=== PATIENT | female | born 1990 | race American Indian/Alaskan Native ===

== ENCOUNTER 2017-04-03 02:10 | Emergency (ER) | payer OTHER ==
[2017-04-03 04:15] VITALS: BP 108/68
[2017-04-03] MEDS ORDERED: MOTRIN PO ONE (04:15)
--- NOTE | 2017-04-03 04:54 | XRay Report ---
FINAL REPORT EXAM: XR SPINE LUMBOSACRAL 2-3V HISTORY: lower back pain TECHNIQUE: Three views lumbar spine, 5 total images PRIORS: None. FINDINGS: Lumbar lordosis is intact. Vertebral body heights and intervertebral disc spaces are preserved. No listhesis, spondylolysis or other fracture. IMPRESSION: Unremarkable lumbar spine radiographs. Consider follow-up MRI as warranted.
== END 2017-04-03 07:45 | disposition left against medical advice (07) ==
LOC: ED 02:10
DX: M54.5 Low back pain (principal); Z53.21 Procedure and treatment not carried out due to patient leaving prior to being seen by health care provider
CPT/HCPCS: 72100

== ENCOUNTER 2017-11-01 06:04 | Emergency (ER) | payer OTHER ==
[2017-11-01 06:45] VITALS: BP 101/63
[2017-11-01 07:51] LABS: Bilirubin,Urine NEG (Negative); Blood,Urine NEG (Negative); Color,Urine Yellow (Yellow); Mucus,Urine FEW /HPF; Protein,Urine <15 mg/dL mg/dL (Negative); Urobilinogen,Urine < 2.0 mg/dL (<2.0)
[2017-11-01 08:04] LABS: HCG Qualitative,Urine Negative (Negative)
--- NOTE | 2017-11-01 09:17 | XRay Report ---
FINAL REPORT EXAM: XR WRIST 3+V RT HISTORY: trauma COMPARISON: None. TECHNIQUE: Four views of the right wrist FINDINGS: There is normal alignment without acute fracture or dislocation. The joint spaces are preserved. The overlying soft tissues are intact. IMPRESSION: No acute bony abnormality of the right wrist.
--- NOTE | 2017-11-01 10:55 | Emergency Department Report ---
ED Upper Extremity Inj HPI - General Chief Complaint: Extremity Injury, Upper Stated Complaint: RT HAND PAIN Time Seen by Provider: 11/01/17 10:38 Source: patient Mode of arrival: Ambulatory Limitations: No Limitations - History of Present Illness Initial Comments: This is a 27-year-old -[place] female who presents with right wrist pain while in work yesterday. His right wrist pain shortly after pulling a pallet yesterday while at work. Patient states she was moving a palate with a pallet kirby and he got caught on something and injured her wrist back. Fine yesterday while at work continued on and when she woke up this morning and her right wrist was and she was unable to move it. Patient's denies swelling or erythema to area. States pain is on the lateral side of right wrist and worse with movement. Patient states pain is 8 out of 10 with movement on pain scale. Patient has not taken anything [id number], she is applied ice to area for swelling. Denies swelling, erythema, fever. MD Complaint: Injury to:: right, wrist Onset/Timin -: days(s) Other Extremity Injury: Wrist: Right Other Injuries: none Handedness: right Place: work Severity scale (0 -10): 8 Improves With: immobilization Worsens With: movement of extremity Context: other (hyperextended ) Associated Symptoms: numbness. denies: weakness, neck pain, suspects foreign body, nausea/vomiting, heard/felt popping sensat - Related Data Previous Rx's Medication Instructions Recorded Last Taken Type Cyclobenzaprine HCl [Flexeril 5 MG 5 mg PO TID PRN #12 tab 11/01/17 Unknown Rx TAB] Ibuprofen [Motrin 800 MG tab] 800 mg PO Q8HR PRN #15 tablet 11/01/17 Unknown Rx Allergies Allergy/AdvReac Type Severity Reaction Status Date / Time No Known Allergies Allergy Verified 11/01/17 06:41 ED Review of Systems ROS: Stated complaint: RT HAND PAIN Other details as noted in HPI Constitutional: denies: chills, fever Respiratory: denies: cough, shortness of breath, wheezing Cardiovascular: denies: chest pain, palpitations Gastrointestinal: denies: abdominal pain, nausea, diarrhea Musculoskeletal: arthralgia (right wrist pain). denies: back pain, joint swelling Skin: denies: rash, lesions Neurological: numbness. denies: headache, weakness, paresthesias Psychiatric: denies: anxiety, depression ED Past Medical Hx - Past Medical History Hx Asthma: Yes (seasonal allergies) - Surgical History Past Surgical History?: Yes Additional Surgical History: Left ACL surgery - Social History Smoking Status: Former Smoker Substance Use Type: None - Medications Home Medications: Home Medications Medication Instructions Recorded Confirmed Last Taken Type Cyclobenzaprine HCl [Flexeril 5 MG 5 mg PO TID PRN #12 tab 11/01/17 Unknown Rx TAB] Ibuprofen [Motrin 800 MG tab] 800 mg PO Q8HR PRN #15 tablet 11/01/17 Unknown Rx ED Physical Exam - General Limitations: No Limitations General appearance: alert, in no apparent distress - Neck Neck exam: Present: normal inspection - Respiratory Respiratory exam: Present: normal lung sounds bilaterally. Absent: respiratory distress - Cardiovascular Cardiovascular Exam: Present: regular rate, normal rhythm. Absent: systolic murmur, diastolic murmur, rubs, gallop - GI/Abdominal GI/Abdominal exam: Present: soft, normal bowel sounds. Absent: organomegaly, mass - Extremities Exam Extremities exam: Present: normal inspection, normal capillary refill. Absent: pedal edema, joint swelling, calf tenderness - Expanded Upper Extremity Exam Right Shoulder Exam: Present: normal inspection, full ROM Upper Arm exam: Present: normal inspection, full ROM Elbow exam: Present: normal inspection, full ROM Forearm Wrist exam: Present: tenderness (tenderness and ulnar extensor area, no swelling or erythema, limited range of motion secondary to pain). Absent: swelling, abrasion, laceration, ecchymosis, deformity, crepidus, dislocation, erythema, tenderness over anatomical snuff box, pain with axial thumb loading Hand Wrist exam: Present: full ROM. Absent: tenderness, swelling, abrasion, laceration, ecchymosis, deformity, crepidus, dislocation, erythema, amputation, nail avulsion, subungual hematoma Neuro motor exam: Present: thumb opposition intact, thumb IP flexion intact, thumb adduction intact, fingers 2-5 abduction intact. Absent: wrist extension intact Neurosensory exam: Present: radial nerve intact, ulnar nerve intact, median nerve intact Vascular: Present: normal capillary refill, radial pulse - Neurological Exam Neurological exam: Present: alert, oriented X3 - Psychiatric Psychiatric exam: Present: normal affect, normal mood - Skin Skin exam: Present: warm, dry, intact, normal color. Absent: rash ED Course Vital Signs 11/01/17 06:41 Temperature 97.6 F Pulse Rate 68 Respiratory 18 Rate Blood Pressure 101/63 O2 Sat by Pulse 100 Oximetry ED Medical Decision Making - Radiology Data Radiology results: report reviewed EXAM: XR WRIST 3+V RT HISTORY: trauma COMPARISON: None. TECHNIQUE: Four views of the right wrist FINDINGS: There is normal alignment without acute fracture or dislocation. The joint spaces are preserved. The overlying soft tissues are intact. IMPRESSION: No acute bony abnormality of the right wrist. - Medical Decision Making This is a 27 y.o. female presents with right wrist pain from injury at work yesterday. Patient was examined by me. Vitals are normal and patient is in no acute distress. Obtained a urinalysis, urine hCG, and x-ray of right ribs. X- rays read by radiologist and no acute bony abnormalities found. Urinalysis and urine hCG negative. Patient informed of results. Wrist immobilizer applied to right wrist. Start ibuprofen and cyclobenzaprine for right wrist sprain. Plan discussed with patient to discharge home and treat outpatient. Patient discharged home in stable condition. Follow up with PCP in 2-3 days Critical care attestation.: If time is entered above; I have spent that time in minutes in the direct care of this critically ill patient, excluding procedure time. ED Disposition Clinical Impression: Right wrist pain Sprain of right wrist Qualifiers: Encounter type: initial encounter Qualified Code(s): S63.501A - Unspecified sprain of right wrist, initial encounter Disposition: TO HOME OR SELFCARE Is pt being admited?: No Does the pt Need Aspirin: No Condition: Stable Instructions: Wrist Injury (ED), Wrist Sprain (ED) Additional Instructions: Lee usually resolve in 1-2 weeks. Symptoms will improve each day. Rest, Use ice or heat on affected area for 20 minutes and off for 2 hours. Take pain medication as needed for pain. Don't drive or operate heavy machinery while taking muscle relaxers because they may cause drowsiness. Follow up with Primary Care Provider in 2-3 days. Prescriptions: Cyclobenzaprine HCl [Flexeril 5 MG TAB] 5 mg PO TID PRN #12 tab PRN Reason: Muscle Spasm Ibuprofen [Motrin 800 MG tab] 800 mg PO Q8HR PRN #15 tablet PRN Reason: Pain, Moderate (4-6) Referrals: [facility] [Outside] - 3-5 Days [facility] [Outside] - 3-5 Days [facility] [Outside] - 3-5 Days Forms: Work/School Release Form(ED) Time of Disposition: 11:26 Print Language: CROATIAN
[2017-11-01] MEDS ORDERED: ULTRAM PO ONE (11:13)
== END 2017-11-01 11:39 | disposition home or self-care (01) ==
LOC: ED 06:04
DX: S63.501A Unspecified sprain of right wrist, initial encounter (principal); Z87.891 Personal history of nicotine dependence; X50.0XXA Overexertion from strenuous movement or load, initial encounter; Y93.89 Activity, other specified; Y99.0 Civilian activity done for income or pay; Y92.89 Other specified places as the place of occurrence of the external cause
CPT/HCPCS: 81001; 81025